=== PATIENT | female | born 1950 | race Caucasian/White ===

== ENCOUNTER 2023-06-06 06:00 | Outpatient (CLI) | payer MEDICARE, SELFPAY | END 2023-06-06 23:59 | disposition home or self-care (01) | LOC: SPT 06-07 09:56 | PROVIDERS: Visit Provider Nurse Practitioner | DX: Z46.89 Encounter for fitting and adjustment of other specified devices (principal); M18.11 Unilateral primary osteoarthritis of first carpometacarpal joint, right hand | CPT/HCPCS: 97760; 99204; L3809 ==

== ENCOUNTER → 2023-06-06 14:50 | Outpatient (BNVA) | payer MEDICARE, SELFPAY | PROVIDERS: Family Provider Family Medicine; PCP Family Medicine; Visit Provider Nurse Practitioner | DX: M18.11 Unilateral primary osteoarthritis of first carpometacarpal joint, right hand; R22.31 Localized swelling, mass and lump, right upper limb; R20.2 Paresthesia of skin; Z46.89 Encounter for fitting and adjustment of other specified devices | CPT/HCPCS: 73110; 97760; 99204; L3809 ==

== ENCOUNTER → 2023-11-30 15:49 | Outpatient (CLI) | payer MEDICARE, SELFPAY ==
--- NOTE | 2023-11-30 15:58 | CT_ITS ---
WS: [id number] CT ABDOMEN AND PELVIS WITH AND WITHOUT CONTRAST HISTORY: ABDOMINAL PAIN TECHNIQUE: Unenhanced 5 mm axial imaging first performed through the abdomen. Post contrast imaging t hrough the abdomen and pelvis. Oral contrast has not been provided. Sagittal and coronal reformats a re submitted. All CT scans at [facility] use at least one of these dose optimization techniqu es: automated exposure control; mA and/or kV adjustment per patient size (includes targeted exams whe re dose is matched to clinical indication); or iterative reconstruction. CONTRAST: Omnipaque 350; 95 mL IV. DLP: 1302.20 mGy.cm COMPARISON: None available. Mild hazy and groundglass attenuation at the RIGHT lung base. No mass or nodule. Heart size is normal . Large hiatal hernia. Normal size liver. Hepatic cyst medial LEFT lobe 1.5 x 1.8 cm. Normal portal vein. No bile duct dilat ation. Negative gallbladder and spleen. Normal pancreas. Normal adrenal glands. Kidneys are measuring approximately 8 cm in length consistent with very mild atrophy. There is no obs truction. No renal calcifications. Mild perinephric stranding. 8 mm exophytic cortical cyst from the mid LEFT kidney. No solid masses. Abdominal aorta: Moderate plaque throughout the aorta. There is calcified plaque in intraluminal mura l thickening. Mild stenosis of the aorta just proximal to the bifurcation. Calcification in the proxi mal iliac arteries. Calcific deposits at the origin of the celiac axis and SMA. Abnormal loop of small bowel in the LEFT adnexa. The abnormal loop of small bowel contains a focal st ricture and also a small focus of air which may be extraluminal but does appear contained and encased by fat and inflammation. The proximal loop of small bowel is mildly dilated. Distal to the stricture is a fluid-filled loop. Within the fluid-filled loop is a high density focus. There is a focal area of inflammation but no abscess. Due to the tiny focus of air centrally this could be a small containe d perforation or an encased small bowel diverticulum. There does appear to be at least a moderate if not high-grade stricture although not causing a significant obstruction. No adjacent adenopathy or as cites. No free fluid in the pelvis. Prior hysterectomy. L4 anterolisthesis by 6 mm. Moderate degenerative disc disease at at L3-4 and L4-5. CT/CT abdomen pelvis wo/w [id number] IMPRESSION: 1. Abnormal loop of small bowel in the LEFT pelvis. Abnormal loop in the dista l small bowel is probably the ileum. There is a focal high-grade stricture caus ing only mild more proximal obstruction. There is a single focus of air associa gerardo with the stricture and inflammatory process. This could be a contained perf oration or a small bowel protruding diverticulum. Nevertheless there is an acut e process which needs to be further evaluated. Patient is at risk for additiona l perforation and continued obstruction. Etiology of the inflammation and stric ture is not determined. There may be adhesions or a mass or small bowel diverti cula. Recommend surgical evaluation. No abscess at this time. 2. Small hepatic cyst. 3. Moderate atherosclerosis aorta. 4. Large hiatal hernia. 5. Prior hysterectomy.
[2023-11-30 16:50] LABS: Blood Urea Nitrogen 19 mg/dL (8-23)
[2023-11-30] MEDS: iohexol 350 mg/mL 500 mL Btl (per mL) IV (17:09)
== END | disposition home or self-care (01) ==
LOC: RAD 15:49
PROVIDERS: Radiology Neuroradiology; Visit Provider Family Medicine
DX: R10.9 Unspecified abdominal pain (principal); R91.8 Other nonspecific abnormal finding of lung field; K44.9 Diaphragmatic hernia without obstruction or gangrene; K76.89 Other specified diseases of liver; N28.1 Cyst of kidney, acquired; N26.1 Atrophy of kidney (terminal); Q25.1 Coarctation of aorta; Z98.890 Other specified postprocedural states; M51.36 Other intervertebral disc degeneration, lumbar region; M43.16 Spondylolisthesis, lumbar region
CPT/HCPCS: 74178; 82565; 84520; Q9967

== ENCOUNTER → 2024-01-16 11:00 | Outpatient (BNVA) | payer MEDICARE, SELFPAY | PROVIDERS: Visit Provider Surgery | DX: K52.9 Noninfective gastroenteritis and colitis, unspecified; K21.9 Gastro-esophageal reflux disease without esophagitis; R93.5 Abnormal findings on diagnostic imaging of other abdominal regions, including retroperitoneum; R10.12 Left upper quadrant pain | CPT/HCPCS: 99204 ==

== ENCOUNTER 2024-01-23 09:29 | Outpatient (CLI) | payer MEDICARE, SELFPAY ==
--- NOTE | 2024-01-23 09:30 | US_ITS ---
WS: [id number] RIGHT UPPER QUADRANT ULTRASOUND HISTORY: abdominal pain COMPARISON: None available. Liver: 14.2 cm in length. Liver is normal size. Hepatic cysts described by CT are not identified on t he ultrasound. No bile duct dilatation. Portal Vein: Normal hepatopetal flow with monophasic waveform. Gallbladder: Normally distended gallbladder with no stones or wall thickening. CBD: 0.5 cm Pancreas: Normal size and echogenicity. Right kidney: 9.6 cm in length. Normal size and echogenicity. No hydronephrosis or mass. Aorta and IVC: Mild atherosclerosis aorta. No ascites. US/US gall bladder [id number] IMPRESSION: 1. Negative gallbladder. 2. Previously described hepatic cysts seen by CT are not identified by ultraso und. Liver is unremarkable. 3. No bile duct dilatation.
== END 2024-01-23 09:30 | disposition home or self-care (01) ==
LOC: RAD 09:30
PROVIDERS: Visit Provider Surgery
DX: R10.9 Unspecified abdominal pain (principal); K76.89 Other specified diseases of liver
CPT/HCPCS: 76705

== ENCOUNTER 2024-05-24 15:10 | Outpatient (CLI) | payer MEDICARE, SELFPAY ==
--- NOTE | 2024-05-24 15:14 | USCV_ITS ---
Ankita Garner Age: 73 Gender: F : 1950 Exam Date: 05/24/2024 15:47 Ordering Phys: Salvatore Pineda MD Technologist: [employer] Exam Location: [facility] [place] Indication: bruit Risk Factors: Previous Vascular Surgery: Right Brachial BP: / Left Brachial BP: / Right Left Velocity (cm/s) Spectral Plaque Velocity (cm/s) Spectral Plaque Syst/Diast Broadening Syst/Diast Broadening 79.30/ 19.30 Prox CCA 82.00 / 21.30 85.10/ 23.40 Mid CCA 89.50 / 24.70 83.30/ 25.20 Distal CCA 71.40 / 17.70 45.30/ 11.20 Prox ICA 48.50 / 11.30 72.30/ 21.70 Mid ICA 54.00 / 15.10 82.40/ 28.50 Distal ICA 62.10 / 19.90 84.40 ECA 85.40 0.50 ICA/CCA 0.70 Antegrade Vertebral Antegrade 54.50/ 13.50 cm/s 31.90/ 5.80 cm/s Tri Subclavian Tri 114.2 146.7 0 0 CONCLUSIONS Right ICA stenosis <50%. Mild atheromatous plaque right carotid bulb/ICA. Left ICA stenosis <50%. Mild atheromatous plaque left carotid bulb/ICA. Intimal thickening in the common carotid arteries and internal carotid arteries bilaterally. Normal antegrade Doppler flow noted in the right vertebral artery. Normal antegrade Doppler flow noted in the left vertebral artery. Aniceto Madrigal MD (Electronically Signed) Final Date: 25 May 2024 11:01 S
== END 2024-05-24 15:11 | disposition home or self-care (01) ==
LOC: RAD 15:12
PROVIDERS: PCP Family Medicine; Visit Provider Family Medicine
DX: R09.89 Other specified symptoms and signs involving the circulatory and respiratory systems (principal); I65.23 Occlusion and stenosis of bilateral carotid arteries; R93.89 Abnormal findings on diagnostic imaging of other specified body structures
CPT/HCPCS: 93880

== ENCOUNTER 2024-05-29 12:36 | Outpatient (CLI) | payer MEDICARE, SELFPAY ==
--- NOTE | 2024-05-29 12:45 | US_ITS ---
WS: [id number] RENAL ULTRASOUND HISTORY: Abnormal Renal Function COMPARISON: 01/23/2024, 11/30/2023 TECHNIQUE: 2-D and color Doppler imaging of the kidney submitted. Right kidney: 8.0 cm x 3.7 cm x 3.8 cm. Cortex: 0.7 cm Mild atrophy RIGHT kidney with diffuse cortical thinning. No obstruction. Similar size kidney as comp ared to the CT of 11/30/2023. Left kidney: 7.9 cm x 3.1 cm x 3.5 cm. Cortex: 0.7 cm Mild atrophy LEFT kidney with diffuse mild cortical thinning. No obstruction. Exophytic cortical cyst from the lower pole measures 1.2 cm. Aorta: Normal. Urinary Bladder: Nondistended. Patient recently voided. US/US renal BI* [id number] IMPRESSION: 1. Mild atrophy of each kidney with diffuse cortical thinning. Similar to the CT of 11/30/2023. 2. No hydronephrosis. 3. Simple cyst LEFT kidney.
== END 2024-05-29 12:37 | disposition home or self-care (01) ==
LOC: RAD 12:36
PROVIDERS: PCP Family Medicine; Visit Provider Family Medicine
DX: R94.4 Abnormal results of kidney function studies (principal); N26.1 Atrophy of kidney (terminal); R93.421 Abnormal radiologic findings on diagnostic imaging of right kidney; R93.422 Abnormal radiologic findings on diagnostic imaging of left kidney; N28.1 Cyst of kidney, acquired
CPT/HCPCS: 76770